=== PATIENT | female | born 1945 | race Hispanic/Latino ===

== ENCOUNTER → 2025-07-17 | Outpatient (CLI) | payer OTHER ==
[~2025-07-17] VITALS: Ht 147.3 cm; Wt 78.7 kg
[~2025-07-17] MED LIST: ACET1TAB97 PO; AMLO-257 PO; ASPI-1443 PO; ATOR40TA69 PO; LISI20TA24 PO
[2025-07-17 12:22] VITALS: BP 140/77; PULSE 75; RESP 14; TEMP 98.1
== END | disposition home or self-care (01) ==
LOC: DAH 11:15 → EDSTATUS 07-18 10:50
PROVIDERS: ATTEND Student in an Organized Health Care Education/Training Program
DX: Z01.818 Encounter for other preprocedural examination (principal); M75.121 Complete rotator cuff tear or rupture of right shoulder, not specified as traumatic; M19.011 Primary osteoarthritis, right shoulder; M25.511 Pain in right shoulder; I10 Essential (primary) hypertension; Z96.653 Presence of artificial knee joint, bilateral; Z79.82 Long term (current) use of aspirin; Z79.899 Other long term (current) drug therapy; Z53.8 Procedure and treatment not carried out for other reasons
CPT/HCPCS: 36415; 82040; 84134; 86140; 87641